=== PATIENT | female | born 1970 | race Caucasian/White ===

== ENCOUNTER 2016-09-24 19:53 | Emergency (ER) | payer MEDICAID ==
[~2016-09-24] VITALS: Ht 157.5 cm; Wt 79.5 kg
[~2016-09-24 19:53] MED LIST: DICY10CA60 PO
[2016-09-24 20:00] VITALS: Ht 157.5 cm; Wt 79.5 kg
[2016-09-24] MEDS ORDERED: ALPR0.5T PO (20:48)
--- NOTE | 2016-09-24 20:59 | ERD ---
ER Documentation Chief Complaint Date/Time DATE: 09/24/16 TIME: 20:59 Chief Complaint NOSE BLEED TODAY, DENIES DIZZINESS. HPI This is a 45-year-old female who is here for nosebleed. Patient had a nosebleed about a hour and a half ago that is currently stopped. Patient did not blow her nose or pick her nose or have any recent nasal congestion. She is not on hypertensive medicines or on blood thinners. She also is complaining of over a year of random times where she feels like she needs to take a deep breath and has some heart palpitations. Sometimes she has the feeling of impending doom sometimes she does not. She says sometimes they are very frequent and occur daily and sometimes she can go quite some time without having them. She says occurred at random times when she is driving or sometimes are worse when she is in an enclosed area. She does not have any chest pain or syncopal episode. The epistaxis is bilateral anterior ROS All systems reviewed and are negative except as per history of present illness. Medications Home Meds Active Scripts Alprazolam* (Xanax*) 0.5 Mg Tab, 0.5 MG PO Q8H Y for ANXIETY, #14 TAB Prov:OSVALDO SOTO DO 09/24/16 Dicyclomine Hcl* (Bentyl*) 10 Mg Capsule, 10 MG PO QID Y for PAIN, #14 CAP Prov:LILA RODRIGUEZ 11/08/14 Allergies Allergies: Coded Allergies: No Known Allergy (Unverified , 09/24/16) PMhx/Soc Medical and Surgical Hx: pt denies Medical Hx History of Surgery: Yes (TUBELIGATION, CARPAL TUNNEL) Hx Alcohol Use: Yes Hx Substance Use: No Hx Tobacco Use: No Smoking Status: Never smoker FmHx Family History: No coronary disease Physical Exam Vitals Vital Signs Date Time Temp Pulse Resp B/P Pulse Ox O2 Delivery O2 Flow Rate FiO2 09/24/16 20:00 98.0 72 18 168/84 100 Physical Exam Const: Well-developed, well-nourished Head: Atraumatic, normocephalic Eyes: Normal Conjunctiva, PERRLA, EOMI, normal sclera, no nystagmus ENT: Normal External Ears, Nose and Mouth,, bilateral nares have some old blood at Kiesselbach's plexus moist mucus membranes. Neck: Full range of motion. No meningismus, no lymphadenopathy. Resp: Clear to auscultation bilaterally, no wheezing, rhonchi, rales Cardio: Regular rate and rhythm, no murmurs, S1 S2 present Abd: Soft, non tender x 4, non distended. Normal bowel sounds, no guarding or rebound, no pulsitile abdominal masses or bruits Skin: No petechiae or rashes, no ecchymosis , no maculopapular rash Back: No midline or flank tenderness Ext: No cyanosis, or edema, FROM x 4, normal inspection, neurovascularly intact x 4 Neur: Awake and alert, STR 5/5 x 4, sensation intact x 4, no focal findings, cerebellum intact Psych: Normal Mood and Affect Results 24 hrs Current Medications Medications (Trade) Dose Ordered Sig/Zhou Route PRN Reason Start Time Stop Time Status Last Admin Dose Admin Oxymetazoline HCl (Afrin [place]) 2 spray ONCE ONCE NASAL 09/24/16 21:00 09/24/16 21:01 DC Procedures/MDM EKG: Rate/Rhythm: Normal sinus rhythm with sinus arrhythmia QRS, ST, QT: NORMAL UT, QRS, QT] Impression: [NORMAL EKG] Patient had 2 sprays of Afrin on each side of her nose. Discussed with her this may be anxiety or she may have some type of mild arrhythmia. Told her she needs to see a primary care doctor and get a Holter monitor and more workup. Symptoms have been going on for over a year is unlikely that is anything serious however she does need to get a workup. Told her not to blow her nose and told her what to do of her nose starts to bleed again while she is home Departure Diagnosis: Primary Impression: Epistaxis Additional Impression: Intermittent palpitations Condition: Stable Patient Instructions: Epistaxis (Adult), Palpitations OSVALDO SOTO DO Sep 24, 2016 20:59
[2016-09-24] MEDS ORDERED: OXYMETAZOLINE 0.05% 15 ML NAS SPRAY NASAL ONE (21:00)
== END 2016-09-24 22:18 | disposition home or self-care (01) ==
LOC: FTE 19:53
DX: R04.0 Epistaxis (principal); R00.2 Palpitations
CPT/HCPCS: 93005; Z7502; Z7610

== ENCOUNTER 2017-09-30 05:12 | Emergency (ER) | END 2017-09-30 09:15 | disposition home or self-care (01) ==